=== PATIENT | male | born 1965 | race Caucasian/White ===

== ENCOUNTER 2020-09-21 12:44 | Emergency (ER) | payer MEDICARE, OTHER ==
[~2020-09-21 12:44] MED LIST: AMIODARONE HCL200 MG PO; AMOX TR-K CLV1 EAC4 PO; ASPIRIN EC81 MG PO; ELIQUIS 5 MG TAB5 MG PO; IPRAT-ALBUT 0.5-3 ML NEB; LISINOPRIL10 MG PO; LOPRESSOR 50 MG50 MG PO; METFORMIN HCL500 MG PO
[2020-09-21 13:34] LABS: RED BLOOD COUNT 4.39 M/UL (4.20-5.50); WHITE BLOOD COUNT 27.8 K/UL (4.5-11.0)
== END 2020-09-21 19:33 | disposition short-term general hospital (02) ==
LOC: ER1 12:44
PROVIDERS: Physician Assistant Medical
DX: N13.2 Hydronephrosis with renal and ureteral calculous obstruction (principal); R07.9 Chest pain, unspecified; D72.829 Elevated white blood cell count, unspecified
CPT/HCPCS: 71045; 72133; 80053; 82550; 82553; 83605; 83874; 84484; 85025; 85652; 86140; 87040; 93005; 96374; 99285; J2543; J7030; Q9967